=== PATIENT | female | born 1990 | race Caucasian/White ===

== ENCOUNTER 2020-09-10 22:03 | Emergency (ER) | payer MEDICAID ==
[~2020-09-10] VITALS: Ht 175.3 cm; Wt 61.2 kg
--- NOTE | 2020-09-10 22:22 | Emergency Room Report ---
History of Present Illness General Chief Complaint: Lower Extremity Injury Source: Patient Present Illness HPI Is a 30-year-old female with no past medical history. She presents with chief complaint of right leg numbness and pain. Onset this morning. No trauma. Pain is to the lateral aspect of her thigh radiating down to the knee area. She is felt numbness in that area compared to the left side. No swelling. She is on control pill. No fever chills but no shortness of breath. Pain is mild. Nothing made it better. Nothing made it worse. Allergies: Coded Allergies: No Known Allergies (Unverified , 09/10/20) COVID-19 Screening Contact w/high risk pt: No Experienced COVID-19 symptoms?: No COVID-19 Testing performed STONER HAND: No Patient History Past Medical History: see triage record, old chart reviewed Past Surgical History: none Pertinent Family History: none Social History: Denies: smoking Now: No Immunizations: other Reviewed Nursing Documentation: PMH: Agreed; PSxH: Agreed Nursing Documentation-PM Past Medical History: No Stated History Review of Systems Eye: Denies: eye pain, blurred vision ENT: Denies: ear pain, nose congestion, throat swelling Respiratory: Denies: cough, shortness of breath Cardiovascular: Denies: chest pain, palpitations Gastrointestinal: Denies: abdominal pain, diarrhea, nausea, vomiting Musculoskeletal: Denies: back pain, joint pain Skin: Denies: rash Neurological: Denies: headache, numbness Endocrine: Denies: increased thirst, increased urine Hematologic/Lymphatic: Denies: easy bruising All Other Systems: negative except mentioned in HPI Physical Exam Vital Signs Date Time Temp Pulse Resp B/P (MAP) Pulse Ox O2 Delivery O2 Flow Rate FiO2 09/10/20 22:06 98.8 88 18 141/84 (103) 94 Room Air Vitals unremarkable Sp02 EP Interpretation: reviewed, normal General Appearance: well appearing, no apparent distress, alert Head: normocephalic, atraumatic Eyes: bilateral eye PERRL, bilateral eye EOMI ENT: hearing grossly normal, normal pharynx Neck: full range of motion, supple, no meningismus Respiratory: chest non-tender, lungs clear, normal breath sounds Cardiovascular #1: regular rate, rhythm, no murmur Gastrointestinal: normal bowel sounds, non tender, no mass, no organomegaly, no bruit, non-distended Musculoskeletal: back normal, normal range of motion, gait/station normal Psychiatric: mood/affect normal Medical Decision Making Diagnostic Impression: Primary Impression: Paresthesia of right lower extremity ER Course This patient presents with pain and paresthesia of the right lower extremity. Most likely secondary to a pinched nerve. I do not see any injury or evidence of DVT. Will discharge home. Last Vital Signs Date Time Temp Pulse Resp B/P (MAP) Pulse Ox O2 Delivery O2 Flow Rate FiO2 09/10/20 22:06 98.8 88 18 141/84 (103) 94 Room Air Status: unchanged Disposition: HOME, SELF-CARE Condition: Stable Additional Instructions: Follow-up with your doctor in 7 days. Return if symptoms worsen. May take Motrin for pain. Eric Peña MD Sep 10, 2020 22:22
--- NOTE | 2020-09-10 22:39 | NUR ---
ED Nurse Note: pt from home c/o right upper leg pain since noon today, labs collected and sent, pt aox4, ambulatory, stable, per pt no relevent medical hx
[2020-09-10 23:26] VITALS: BP 131/78
== END 2020-09-10 23:26 | disposition home or self-care (01) ==
LOC: EMR 22:25
DX: R20.2 Paresthesia of skin (principal)
CPT/HCPCS: 36415; 85379; Z7502; 99283